=== PATIENT | female | born 1955 | race African-American/Black ===

== ENCOUNTER 2016-08-09 05:34 | Day surgery (SDC) | payer OTHER ==
[2016-08-09] MEDS ORDERED: LR 1,000 ML ONE (06:11)
[2016-08-09] MEDS ORDERED: MYLICON DROPS (DOSE) MISC ONE (07:23)
[2016-08-09] MEDS ORDERED: LR 500 ML ONE (08:23)
--- NOTE | 2016-08-09 08:33 | OPERATIVE NOTE ---
PROCEDURE DATE: 08/09/2016 HISTORY AND REASON FOR PROCEDURE: This patient needs a screening colonoscopy. MEDICATIONS: Given by anesthesia service. Patient was monitored before, during, and after the procedure by them and the patient's condition remains stable. PHOTOGRAPHS TAKEN: From the cecum and the polyp in the ascending colon. SPECIMEN: Polyp in the ascending colon. DESCRIPTION OF PROCEDURE: The patient was kept in the left lateral decubitus position. Rectal examination was performed. Anal canal lubricated. The Olympus video scope was introduced in to the rectum, advanced to the cecum. The patient tolerated the procedure well. Bowel preparation was less than optimum with plenty of liquid stool present. I had to suction the liquid stool out to have a good view, but the view was adequate. FINDINGS: Rectum appeared normal without any lesions. The sigmoid had normal mucosa and vascularity. The descending colon was normal. The splenic flexure was normal. Transverse colon was very redundant but normal. The hepatic flexure was normal. In the ascending colon, close to the ileocecal valve there was a broad-based polyp measuring about 1 to 1.5 cm in size. It was so broad-based that it could not be removed by snaring it properly. Therefore, I did several biopsies and then injected Homa ink in that area to tattoo it. If it comes back as an adenomatous polyp that part of the colon needs to be resected. After taking the biopsy and tattooing, air was taken out of the patient's colon and scope was removed from the patient. IMPRESSION: Broad polyp in the ascending colon; cannot be removed with the scope. RECOMMENDATION: Await biopsy results. The patient will see me in the office in 2 weeks. At that time, we will discuss the biopsy results and further plan.
[2016-08-09 09:02] VITALS: BP 113/72
[2016-08-09] MEDS ORDERED: DECADRON ONE (09:37)
[2016-08-09] MEDS ORDERED: XYLOCAINE-MPF 2% ONE (09:37)
[2016-08-09] MEDS ORDERED: ZOFRAN ONE (09:37)
[2016-08-09] MEDS ORDERED: DIPRIVAN 1% ONE (09:42)
== END 2016-08-09 09:04 | disposition home or self-care (01) ==
LOC: ENDO 05:34
PROVIDERS: ATTEND Internal Medicine Gastroenterology
DX: Z12.11 Encounter for screening for malignant neoplasm of colon (principal); K63.5 Polyp of colon; I10 Essential (primary) hypertension; E78.00 Pure hypercholesterolemia, unspecified; E11.9 Type 2 diabetes mellitus without complications; M19.90 Unspecified osteoarthritis, unspecified site
CPT/HCPCS: 88305; J1100; J2405; J7120